=== PATIENT | female | born 1940 | race Caucasian/White ===

== ENCOUNTER 2016-11-21 12:58 | Outpatient (CLI) | payer MEDICARE ==
[2016-11-21 15:44] LABS: Anion Gap 13 mmol/L (10-20); BUN (Urea Nitrogen) 18 mg/dL (9.8-20.1); Calc. Creatinine Clearance 0 mL/min (70-130); Calcium 9.6 mg/dL (7.8-10.44); Carbon Dioxide 24 mmol/L (23-31); Chloride 106 mmol/L (98-107); Estimated GFR-MDRD 72; Glucose 89 mg/dL (83-110); Potassium 4.4 mmol/L (3.5-5.1); Sodium 139 mmol/L (136-145)
== END 2016-11-21 12:59 | disposition home or self-care (01) ==
LOC: NAVSJIPCSP 12:58
PROVIDERS: ATTEND Specialist
DX: I10 Essential (primary) hypertension (principal); Z79.899 Other long term (current) drug therapy
CPT/HCPCS: 36415; 80048

== ENCOUNTER 2017-06-02 17:02 | Emergency (ER) | payer MEDICARE ==
[~2017-06-02 17:02] MED LIST: Iopamidol 370 76% 100 ML VIAL ONE
[2017-06-02 17:38] LABS: #Basophils 0.1 thou/uL (0.0-0.2); #Lymphocytes 1.6 thou/uL (1.20-3.40); #Monocytes 1.2 thou/uL (0.11-0.59); #Neutrophils 7.1 thou/uL (1.40-6.50); %Eosinophils 0.2 % (0.0-10.0); %Lymphocytes 15.9 % (21.0-51.0); %Monocytes 11.7 % (0.0-10.0); %Neutrophils 71.2 % (42.0-75.0); Mean Corpuscular HGB CONC 32.2 g/dL (32.0-36.0); Mean Corpuscular Hemoglobin 29.1 pg (27.0-31.0); Mean Corpuscular Volume 90.4 fl (81.0-99.0); Mean Platelet Volume 7.3 fL (7.4-10.4); Platelet Count 171 thou/uL (130-400); RBC Distribution Width 11.5 % (11.5-14.5); Red Blood Cell (RBC) Count 4.47 mill/uL (4.20-5.40)
[2017-06-02 17:53] LABS: ALT (SGPT) 22 U/L (8-55); AST (SGOT) 20 U/L (5-34); Albumin 4.2 g/dL (3.4-4.8); Alkaline Phosphatase 72 U/L (40-150); Anion Gap 14 mmol/L (10-20); BUN (Urea Nitrogen) 11 mg/dL (9.8-20.1); Bilirubin, Total 0.7 mg/dL (0.2-1.2); CK (CPK) 64 U/L (29-168); Calc. Creatinine Clearance 0 mL/min (70-130); Calcium 9.6 mg/dL (7.8-10.44); Carbon Dioxide 23 mmol/L (23-31); Chloride 104 mmol/L (98-107); Estimated GFR-MDRD 71; Globulin 3.4 g/dL (2.4-3.5); Glucose 134 mg/dL (83-110); Protein, Total 7.6 g/dL (6.0-8.3); Sodium 137 mmol/L (136-145)
[2017-06-02 17:54] LABS: CKMB 1.5 ng/mL (0-6.6); Troponin I Less than 0.010 ng/mL (< 0.028)
[2017-06-02 18:37] LABS: Bilirubin Negative (Negative); Blood, Urine Negative (Negative); Clarity SL HAZY (Clear); Glucose, Urine (Dipstick) Negative (Negative); Leukocyte Moderate (Negative); Nitrite Negative (Negative); Protein, Urine (Dipstick) Negative (Neg-Trace); Urobilinogen 0.2 mg/dL (0.2-1.0); pH, Urine 6.5 (5.0-9.0)
[2017-06-02 18:47] LABS: Renal Epithelial 0-3 HPF (0-3); Squamous Epithelial 0-3 HPF (0-3)
--- NOTE | 2017-06-02 20:08 | CT ---
EXAM: ABDOMEN CT WITH CONTRAST PELVIC CT WITH CONTRAST 06/02/17 HISTORY: Severe lower abdominal pain, onset two days ago. COMPARISON: None. TECHNIQUE: An abdomen and pelvic CT are performed with IV and enteric contrast. Coronal reformatted images are submitted for interpretation. FINDINGS: ABDOMEN CT: Areas of scarring and atelectasis in the lung bases. Heart is enlarged. No significant pericardial f luid. There are coronary artery calcifications. The visualized aorta does demonstrate atherosclerosi s. No aneurysm or dissection. No periaortic fat stranding. Symmetric attenuation of psoas muscles. I ntra and extrahepatic biliary system is unremarkable. There is CT evidence of cholelithiasis without definite CT evidence of cholecystitis. The liver, spl een, pancreas and adrenal glands have appropriate enhancement. No gastrohepatic, retrocrural or periportal lymphadenopathy. No mesenteric mass, lymphadenopathy, free air or free fluid. Symmetric enhancement of the kidneys. Bilaterally, no obstructive uropathy. Gastric mucosa is grossly unremarkable. Small hiatal hernia is noted. Multiple normal caliber contra st filled small bowel loops. Ileocecal junction is normal. Cecum, ascending colon, transverse colon, and descending colon are unremarkable. There are diverticula in the sigmoid colon with evidence of sigmoid colon wall thickening. There is evidence of pericolonic fat stranding in the sigmoid colon. Small focus of air attenuation in the pericolonic mesentery is noted. This collection of inflammator y change measures 1.6 x 2.0 cm and likely represents a focal area of phlegmon. The attenuation featu res do not suggest an abscess. PELVIC CT: There is stranding of the pelvic fat likely reactive from diverticulitis of the sigmoid colon. There is also enhancement of the uterus which may be reactive. There is a small amount of fluid in the ri ght hemipelvis. The urinary bladder is unremarkable. There are no osteoblastic or osteolytic lesions . IMPRESSION: 1. Sigmoid colon diverticulitis with area of phlegmon adjacent to the sigmoid colon mesentery. There is no evidence of an abscess at this time. 2. Enhancement involving the uterus, nonspecific. Uterine enhancement may be reactive change du e to adjacent inflammation, infection. 3. CT evidence of cholelithiasis without CT evidence of cholecystitis. POS: PPP
[2017-06-02] MEDS ORDERED: metroNIDAZOLE 500 MG/100 ML BAG ONE (20:10)
== END 2017-06-02 20:58 | disposition short-term general hospital (02) ==
LOC: NAV ERS 17:02
DX: K57.32 Diverticulitis of large intestine without perforation or abscess without bleeding (principal); I25.10 Atherosclerotic heart disease of native coronary artery without angina pectoris; K21.9 Gastro-esophageal reflux disease without esophagitis; I10 Essential (primary) hypertension; F41.9 Anxiety disorder, unspecified; Z79.82 Long term (current) use of aspirin; Z79.899 Other long term (current) drug therapy
CPT/HCPCS: 74177; 80053; 81003; 81015; 82553; 83605; 84484; 85025; 87086; 93005; 96365

== ENCOUNTER 2019-06-29 18:41 | Emergency (ER) | payer MEDICARE ==
[2019-06-29] MEDS ORDERED: Aspirin Chewable 81 MG TAB ONE (18:51)
[2019-06-29] MEDS ORDERED: Nitroglycerin 0.4 MG TAB (25 Tab Bottle) ONE (19:06)
[2019-06-29 19:10] LABS: #Basophils 0.1 thou/uL (0.0-0.2); #Eosinphils 0.1 thou/uL (0.0-0.7); #Lymphocytes 2.1 thou/uL (1.20-3.40); #Monocytes 0.6 thou/uL (0.11-0.59); #Neutrophils 3.8 thou/uL (1.40-6.50); %Basophils 0.9 % (0.0-1.0); %Eosinophils 1.1 % (0.0-10.0); %Lymphocytes 31.3 % (21.0-51.0); %Monocytes 9.1 % (0.0-10.0); %Neutrophils 57.6 % (42.0-75.0); Hemoglobin 13.8 g/dL (12.0-16.0); Mean Corpuscular HGB CONC 32.7 g/dL (32.0-36.0); Mean Corpuscular Volume 88.8 fL (78.0-98.0); Mean Platelet Volume 7.6 fL (7.4-10.4); Platelet Count 205 thou/uL (130-400); Red Blood Cell (RBC) Count 4.76 mill/uL (4.20-5.40); White Blood Cell (WBC) Count 6.6 thou/uL (4.8-10.8)
--- NOTE | 2019-06-29 19:22 | RAD ---
XR Chest Pa Lat STANDARD History: Chest pain Comparison: None. Findings: Lungs are clear. No pneumothorax. No effusion. No acute osseous abnormality. Impression: No acute intrathoracic abnormality.
[2019-06-29 19:25] LABS: ALT (SGPT) 19 U/L (8-55); AST (SGOT) 23 U/L (5-34); Albumin 5.1 g/dL (3.4-4.8); Alkaline Phosphatase 107 U/L (40-110); Anion Gap 18 mmol/L (10-20); BUN (Urea Nitrogen) 16 mg/dL (9.8-20.1); Bilirubin, Total 0.3 mg/dL (0.2-1.2); Calc. Creatinine Clearance 0 mL/min (70-130); Calcium 10.3 mg/dL (7.8-10.44); Carbon Dioxide 21 mmol/L (23-31); Chloride 100 mmol/L (98-107); Estimated GFR-MDRD 71; Globulin 3.3 g/dL (2.4-3.5); Glucose 129 mg/dL (83-110); Potassium 3.8 mmol/L (3.5-5.1); Protein, Total 8.4 g/dL (6.0-8.3); Sodium 135 mmol/L (136-145)
[2019-06-29] MEDS ORDERED: Nitroglycerin 2% Ointment 1 INCH/1 GM Packet ONE (19:31)
[2019-06-29 19:36] LABS: Bilirubin Negative (Negative); Blood, Urine Negative (Negative); Clarity Clear (Clear); Glucose, Urine (Dipstick) Negative (Negative); Leukocyte Trace (Negative); Nitrite Negative (Negative); Protein, Urine (Dipstick) 100 mg/dL (Neg-Trace); Urobilinogen 0.2 mg/dL (Less than 2)
[2019-06-29 19:48] LABS: Squamous Epithelial 0-3 HPF (0-3); WBC/HPF 0-3 HPF (0-3)
== END 2019-06-29 20:32 | disposition short-term general hospital (02) ==
LOC: NAV ERS 18:41
DX: I44.7 Left bundle-branch block, unspecified (principal); I10 Essential (primary) hypertension; E78.5 Hyperlipidemia, unspecified; E78.00 Pure hypercholesterolemia, unspecified; I25.10 Atherosclerotic heart disease of native coronary artery without angina pectoris; Z95.5 Presence of coronary angioplasty implant and graft; K21.9 Gastro-esophageal reflux disease without esophagitis; F41.9 Anxiety disorder, unspecified; Z79.899 Other long term (current) drug therapy; Z79.01 Long term (current) use of anticoagulants
CPT/HCPCS: 71046; 80053; 81003; 81015; 83880; 84484; 85025; 93005; 94760

== ENCOUNTER 2019-08-15 15:42 | Emergency (ER) | payer MEDICARE | END 2019-08-15 16:53 | disposition home or self-care (01) | LOC: NAV ERS 15:42 | DX: S51.811A Laceration without foreign body of right forearm, initial encounter (principal); E78.5 Hyperlipidemia, unspecified; E78.00 Pure hypercholesterolemia, unspecified; M19.90 Unspecified osteoarthritis, unspecified site; I25.10 Atherosclerotic heart disease of native coronary artery without angina pectoris; K21.9 Gastro-esophageal reflux disease without esophagitis; I10 Essential (primary) hypertension; F41.9 Anxiety disorder, unspecified; Z79.01 Long term (current) use of anticoagulants; Z95.5 Presence of coronary angioplasty implant and graft; Z79.899 Other long term (current) drug therapy; W55.03XA Scratched by cat, initial encounter | CPT/HCPCS: 12001 ==

== ENCOUNTER 2020-02-21 14:37 | Emergency (ER) | payer MEDICARE, OTHER ==
[2020-02-21 15:19] LABS: #Basophils 0.1 thou/uL (0.0-0.2); #Lymphocytes 0.9 thou/uL (1.20-3.40); #Monocytes 0.6 thou/uL (0.11-0.59); #Neutrophils 7.4 thou/uL (1.40-6.50); %Basophils 0.8 % (0.0-1.0); %Lymphocytes 10.3 % (21.0-51.0); %Monocytes 6.4 % (0.0-10.0); %Neutrophils 82.6 % (42.0-75.0); Hemoglobin 13.8 g/dL (12.0-16.0); Mean Corpuscular HGB CONC 32.5 g/dL (32.0-36.0); Mean Corpuscular Hemoglobin 28.8 pg (27.0-31.0); Mean Corpuscular Volume 88.5 fL (78.0-98.0); Mean Platelet Volume 9.1 fL (7.4-10.4); Platelet Count 274 thou/uL (130-400); RBC Distribution Width 11.3 % (11.5-14.5)
[2020-02-21] MEDS ORDERED: Sodium Chloride 0.9% 500 ML ONE (15:23)
[2020-02-21] MEDS ORDERED: Diltiazem 125 MG/25 ML ONE (15:23)
[2020-02-21] MEDS ORDERED: Aspirin Chewable 81 MG TAB ONE (15:23)
[2020-02-21] MEDS ORDERED: Sodium Chloride 0.9% 100 ML ONE (15:24)
[2020-02-21 15:27] LABS: INR-International Normal Ratio 1.3; PTT 27.5 sec (22.9-36.1); Prothrombin Time 15.8 sec (12.0-14.7)
[2020-02-21 15:35] LABS: ALT (SGPT) 75 U/L (8-55); AST (SGOT) 28 U/L (5-34); Albumin 4.3 g/dL (3.4-4.8); Alkaline Phosphatase 78 U/L (40-110); Anion Gap 16 mmol/L (10-20); BUN (Urea Nitrogen) 10 mg/dL (9.8-20.1); Bilirubin, Total 0.7 mg/dL (0.2-1.2); Calc. Creatinine Clearance 0 mL/min (70-130); Calcium 9.3 mg/dL (7.8-10.44); Carbon Dioxide 23 mmol/L (23-31); Chloride 81 mmol/L (98-107); Estimated GFR-MDRD 82; Globulin 2.8 g/dL (2.4-3.5); Glucose 148 mg/dL (83-110); Potassium 3.5 mmol/L (3.5-5.1); Protein, Total 7.1 g/dL (6.0-8.3)
[2020-02-21 15:43] LABS: Sodium 116 mmol/L (136-145)
--- NOTE | 2020-02-21 16:01 | RAD ---
EXAM: CHEST ONE VIEW PORTABLE: 02/21/20 HISTORY: Cough, weakness, congestion. COMPARISON: 07/11/19. FINDINGS: There is cardiomegaly with bilateral vascular congestion and minimal interstitial changes probably re presenting mild early edema with small pleural effusions. These changes are new from the prior exam. IMPRESSION: Evidence for congestive heart failure with cardiomegaly, congestion, mild edema, and pleural effusion s. Atherosclerosis of the aorta. POS: RRE
[2020-02-21] MEDS ORDERED: Ondansetron PF 4 MG/2 ML Vial ONE (16:45)
[2020-02-21] MEDS ORDERED: Furosemide 40 MG/4 ML VIAL ONE (17:29)
== END 2020-02-21 17:58 | disposition short-term general hospital (02) ==
LOC: NAV ERS 14:37
DX: I48.91 Unspecified atrial fibrillation (principal); R06.00 Dyspnea, unspecified; Z20.828 Contact with and (suspected) exposure to other viral communicable diseases; E78.5 Hyperlipidemia, unspecified; I25.10 Atherosclerotic heart disease of native coronary artery without angina pectoris; K21.9 Gastro-esophageal reflux disease without esophagitis; I11.0 Hypertensive heart disease with heart failure; I50.9 Heart failure, unspecified; F41.9 Anxiety disorder, unspecified; Z79.899 Other long term (current) drug therapy; Z79.82 Long term (current) use of aspirin
CPT/HCPCS: 71045; 80053; 83605; 83880; 84484; 85025; 85610; 85730; 93005; 96365; 96366; 96375; 96376; J1940; J2405; J3490; J7030

== ENCOUNTER 2021-08-11 16:22 | Outpatient (CLI) | payer MEDICARE | END 2021-08-11 16:23 | disposition home or self-care (01) | LOC: NAV RAD 16:22 | PROVIDERS: ATTEND Family Medicine | DX: R05.9 Cough, unspecified (principal) | CPT/HCPCS: 71046 ==

== ENCOUNTER 2023-04-21 10:57 | Emergency (ER) | payer MEDICARE | END 2023-04-21 12:08 | disposition home or self-care (01) | LOC: NAV ERS 10:57 | DX: G89.29 Other chronic pain (principal); M54.50 Low back pain, unspecified; I10 Essential (primary) hypertension; K21.9 Gastro-esophageal reflux disease without esophagitis; E78.00 Pure hypercholesterolemia, unspecified; Z79.899 Other long term (current) drug therapy | CPT/HCPCS: 99283 ==

== ENCOUNTER 2024-01-21 16:10 | Emergency (ER) | payer MEDICARE, OTHER | END 2024-01-21 17:08 | disposition home or self-care (01) | LOC: NAV ERS 16:10 | DX: S20.161A Insect bite (nonvenomous) of breast, right breast, initial encounter (principal); L98.9 Disorder of the skin and subcutaneous tissue, unspecified; I48.91 Unspecified atrial fibrillation; E78.00 Pure hypercholesterolemia, unspecified; I25.10 Atherosclerotic heart disease of native coronary artery without angina pectoris; I11.0 Hypertensive heart disease with heart failure; I50.9 Heart failure, unspecified; K21.9 Gastro-esophageal reflux disease without esophagitis; W57.XXXA Bitten or stung by nonvenomous insect and other nonvenomous arthropods, initial encounter; Z79.01 Long term (current) use of anticoagulants; Z79.899 Other long term (current) drug therapy | CPT/HCPCS: 99282 ==

== ENCOUNTER 2024-07-29 13:56 | Emergency (ER) | payer MEDICARE ==
[2024-07-29] MEDS ORDERED: Fluconazole 100 MG TAB ONE (14:39)
== END 2024-07-29 15:05 | disposition home or self-care (01) ==
LOC: NAV ERS 13:56
DX: B36.8 Other specified superficial mycoses (principal); I11.0 Hypertensive heart disease with heart failure; I50.9 Heart failure, unspecified; I48.91 Unspecified atrial fibrillation; E78.5 Hyperlipidemia, unspecified; K21.9 Gastro-esophageal reflux disease without esophagitis
CPT/HCPCS: 99282

== ENCOUNTER 2024-08-05 15:35 | Emergency (ER) | payer MEDICARE ==
[2024-08-05] MEDS ORDERED: Fluconazole 100 MG TAB ONE (16:33)
== END 2024-08-05 16:45 | disposition home or self-care (01) ==
LOC: NAV ERS 15:35
DX: B36.9 Superficial mycosis, unspecified (principal); I11.0 Hypertensive heart disease with heart failure; I50.9 Heart failure, unspecified; I25.10 Atherosclerotic heart disease of native coronary artery without angina pectoris; I48.91 Unspecified atrial fibrillation; E78.00 Pure hypercholesterolemia, unspecified; Z95.5 Presence of coronary angioplasty implant and graft; Z79.02 Long term (current) use of antithrombotics/antiplatelets; Z79.899 Other long term (current) drug therapy
CPT/HCPCS: 99282

== ENCOUNTER 2024-09-20 20:58 | Emergency (ER) | payer MEDICARE ==
[2024-09-20] MEDS ORDERED: Acetaminophen/Codeine 30-300mg Tablet ONE (21:31)
== END 2024-09-20 23:30 | disposition home or self-care (01) ==
LOC: NAV ERS 20:58
DX: S39.012A Strain of muscle, fascia and tendon of lower back, initial encounter (principal); G89.29 Other chronic pain; I11.0 Hypertensive heart disease with heart failure; I50.9 Heart failure, unspecified; I48.91 Unspecified atrial fibrillation; I25.10 Atherosclerotic heart disease of native coronary artery without angina pectoris; K21.9 Gastro-esophageal reflux disease without esophagitis; E78.00 Pure hypercholesterolemia, unspecified; W18.09XA Striking against other object with subsequent fall, initial encounter; Y93.89 Activity, other specified; Z79.01 Long term (current) use of anticoagulants; Z95.5 Presence of coronary angioplasty implant and graft; Z79.899 Other long term (current) drug therapy
CPT/HCPCS: 72131